=== PATIENT | male | born 1965 | race Caucasian/White ===

== ENCOUNTER 2017-03-05 05:28 | Day surgery (SDC) | payer OTHER ==
[2017-03-04 14:53] VITALS: BMI 28.6
[~2017-03-05] VITALS: Ht 180.3 cm; Wt 89.5 kg
[2017-03-05 06:00] VITALS: BP 123/68; PULSE 76; RESP 18; Ht 180.3 cm; Wt 89.5 kg
[2017-03-05] MEDS ORDERED: CIPROFLOXACIN 400 MG in D5W 200 ML IVPB PRN (06:00)
[2017-03-05] MEDS ORDERED: FENTAnyl 50 MCG/ML VIAL IV PRN ×2 (06:30)
[2017-03-05] MEDS ORDERED: ATROPINE 1 MG/10 ML SYRINGE IV PRN (06:30)
[2017-03-05] MEDS ORDERED: MIDAZOLAM 1 MG/ML 2 ML INJ IV PRN (06:30)
[2017-03-05] MEDS ORDERED: morphine (1 MG/ML) 10ML SYRINGE IV PRN ×3 (06:30)
[2017-03-05] MEDS ORDERED: HYDROmorphONE (0.2 MG/ML) 10ML SYG IV PRN ×3 (06:30)
[2017-03-05] MEDS ORDERED: LABETALOL HCL 20MG INJ IV PRN (06:30)
[2017-03-05] MEDS ORDERED: EPHEDrine SULFATE 50 MG/5 ML SYG IV PRN (06:30)
[2017-03-05] MEDS ORDERED: OXYCODONE/ACETAMINOPHEN (5/325) TAB PO PRN ×2 (06:30)
[2017-03-05] MEDS ORDERED: hydrALAzine 20 MG INJ IV PRN (06:30)
[2017-03-05] MEDS ORDERED: DIPHENHYDRAMINE 50 MG INJ IV PRN (06:30)
[2017-03-05] MEDS ORDERED: ONDANSETRON 4 MG INJ IV PRN (06:30)
[2017-03-05] MEDS ORDERED: MEPERIDINE 25 MG INJ IV PRN (06:30)
[2017-03-05] MEDS ORDERED: PROPOFOL 20 ML ONE (06:38)
[2017-03-05] MEDS ORDERED: GLYCOPYRROLATE 0.4 MG INJ ONE (06:38)
[2017-03-05] MEDS ORDERED: LIDOCAINE 2% (SDV) 5 ML INJ ONE (06:38)
[2017-03-05] MEDS ORDERED: ROCURONIUM 50 MG INJ ONE (06:38)
[2017-03-05] MEDS ORDERED: NEOSTIGMINE 3 MG/3 ML SYRINGE ONE (06:38)
[2017-03-05] MEDS ORDERED: MIDAZOLAM 1 MG/ML 2 ML INJ ONE (06:39)
[2017-03-05] MEDS ORDERED: FENTAnyl 50 MCG/ML VIAL ONE (06:39)
[2017-03-05] MEDS ORDERED: DEXAMETHASONE 4 MG/ML 1 ML INJ ONE (06:39)
[2017-03-05] MEDS ORDERED: ONDANSETRON 4 MG INJ ONE (06:40)
[2017-03-05] MEDS ORDERED: SUCCINYLCHOLINE CHLORIDE 100 MG/5 ML SYG IV ONE (06:40)
[2017-03-05] MEDS ORDERED: SUGAMMADEX SODIUM 200 MG/2 ML VIAL IV ONE (06:41)
--- NOTE | 2017-03-05 08:44 | HPN ---
Date/Time of Note Date/Time of Note DATE: 03/05/17 TIME: 08:44 Interval H&P Admission Note Pt. seen H&P reviewed: No system changes ERIC HARRISON Mar 05, 2017 08:44
--- NOTE | 2017-03-05 08:53 | OPR ---
Date/Time of Note Date/Time of Note DATE: 03/05/17 TIME: 08:44 Operative Report Procedure Date: Mar 05, 2017 Preoperative Diagnosis Right kidney stone Postoperative Diagnosis Right kidney stone Operation/Procedure Performed RIGHT ESWL Surgeon pastora Typewriter Ribbon Winder none Anesthesia Type: general Estimated Blood Loss: none Transfusion none Specimen none Grafts/Implants none Complications none Pt Condition Post Procedure: stable Disposition: PACU Indications gross hematuria - kidney stone Procedure Description complete dictation number [id number] ERIC HARRISON Mar 05, 2017 08:53
--- NOTE | 2017-03-05 08:55 | PDOCDIS ---
Discharge Instructions DIAGNOSIS Discharge Diagnosis kidney stone CONDITION Patient Condition: Good HOME CARE INSTRUCTIONS: Diet Instructions: Regular ACTIVITY: Activity Restrictions: Slowly Increase Activity Bathing Restrictions: Shower FOLLOW UP/APPOINTMENTS Follow-up Plan one month after x ray, call for time and date REFERRALS Other Referrals none OTHER ORDERS: Other Orders: none SCHOOL/WORK RELEASE May return to School/Work on: Mar 05, 2017 May return to School/Work with: No Restrictions ERIC HARRISON Mar 05, 2017 08:55
[2017-03-05 08:57] VITALS: BP 134/83; PULSE 89; RESP 14
[2017-03-05 09:02] VITALS: BP 123/79; PULSE 88; RESP 14
[2017-03-05 09:07] VITALS: BP 135/78; PULSE 84; RESP 14
[2017-03-05 09:12] VITALS: BP 125/80; PULSE 86; RESP 12
[2017-03-05 09:18] VITALS: BP 123/74; PULSE 78; RESP 16
--- NOTE | 2017-03-05 09:41 | OPR ---
DATE OF OPERATION: BRIEF HISTORY: Franklin Ramirez is a 51-year-old male noted to have gross hematuria. CT urogram dem onstrates a 7 mm right mid to right lower pole nonobstructing stone. The patient now presents for r ight extracorporeal shock wave lithotripsy. Prior cystoscopy negative. How the procedure is perfor med, potential complications, side effects, potential secondary procedure, injury to the kidney surr ounding organs, diabetes and hypertension have all been discussed. He would like to proceed. PREOPERATIVE DIAGNOSIS: Right renal calculi. POSTOPERATIVE DIAGNOSIS: Right renal calculi. PROCEDURE: Right extracorporeal shockwave lithotripsy of a 5 x 7 right mid pole stone. SURGEON: Dr. Olsen. ANESTHESIA: General. COMPLICATIONS: None. FINDINGS: Right renal calculi. PROCEDURE: The patient was brought into the operating room and placed on the lithotripter in the sarabia pine position. He was prepped and draped in usual fashion after anesthesia was induced. A timeout was undertaken. Appropriate pressure points were padded and he received preoperative antibiotic the rapy. Fluoroscopy demonstrated a 7 x 6 mm stone overlying the right renal fossa. The focal point w as placed in the AP and lateral projection, which allowed for right extracorporeal shock wave lithot ripsy with initial energy setting of 1, which was intermittently increased to a total of 7 yet was t hen decreased back down to 6. At 200 shocks a pause was undertaken. Intermittent fluoroscopy and r eadjustment of the patient was undertaken to keep the stone burden in appropriate focal point. At 7 00 shocks good fragmentation was noted and thus the energy level was change from 7 down to 6. He co mpleted a total of 2400 shocks at which point excellent fragmentation was noted. He tolerated the p rocedure well and was transferred to recovery room in stable condition without any noted side effect s or complications. He will be discharged to home on [place] 5/325 one to 2 tab p.o. every 4-6 hours p.r.n., dispense #40, no refill. He will obtain a followup KUB with obliques in 1 months' time. Fu rther intervention evaluation pending clinical course and results of above. Dictated By: ERIC CEJA/NTS Conf#: [id number] DID#: [id number]
--- NOTE | 2017-03-05 12:03 | RADRPT ---
PROCEDURE: Intraoperative imaging of the abdomen with fluoroscopy. CLINICAL INDICATION: Abdominal pain. Intraoperative. TECHNIQUE: 15 images of the abdomen were obtained in the operating room with an image intensifier. No radiologist was in attendance. 94 sac of fluoroscopy time was used. COMPARISON: No prior study is available for comparison. FINDINGS: Images demonstrate targeting of a renal calculus for extracorporeal shock wave lithotripsy. IMPRESSION: 1. Satisfactory intraoperative imaging of the abdomen. RPTAT: QQ .Dioni Go MD, MD Date Time Electronically viewed and signed by .Dioni Go MD, on 03/05/2017 12:03 .R/
== END 2017-03-05 10:00 | disposition home or self-care (01) ==
LOC: EDSEX 05:28 → SDS 05:28
PROVIDERS: ATTEND Urology
DX: N20.0 Calculus of kidney (principal); R31.0 Gross hematuria
CPT/HCPCS: 50590; J1100; J2250; J2405; J3010; Z7512; Z7610; 74430; J2710